=== PATIENT | male | born 1940 | race Caucasian/White ===

== ENCOUNTER 2021-06-26 17:09 | Observation (INO) | payer OTHER ==
[~2021-06-26] VITALS: Ht 177.8 cm; Wt 80.9 kg
[2021-06-26] MEDS ORDERED: ASPIRIN81 MG PO (17:21)
[2021-06-26] MEDS ORDERED: HORIZANT600 MG PO (17:21)
[2021-06-26] MEDS ORDERED: LISINOPRIL-HCT1 EAC1 PO (17:21)
[2021-06-26] MEDS ORDERED: VITAMIN E1000 UNI4 PO (17:22)
[2021-06-26] MEDS ORDERED: VIAGRA25 MG PO (17:22)
[2021-06-26] MEDS ORDERED: METOPROLOL SUCC25 MG PO (17:22)
[2021-06-26] MEDS ORDERED: CRESTOR5 MG PO (17:22)
[2021-06-26] MEDS ORDERED: PREDNISONE20 MG PO ×2 (17:22→22:10)
[2021-06-26] MEDS ORDERED: OMEPRAZOLE5 GM MISC (17:22)
--- OUTSIDE RECORDS SUMMARY | 2021-06-26 18:36 | XMS ---
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 Gamaliel has no Care Guidelines for this patient. [place] VISIT COUNT (12 MO.) 1 KEVON Chen TOTAL 1 NOTE: Visits indicate total known visits. ED/UCC VISIT TRACKING (12 MO.) 06/26/2021 17:11 KEV[place] TYPE: Emergency COMPLAINT: - VOMITING, DIZZY, HOT INPATIENT VISIT TRACKING (12 MO.) No inpatient visits to display in this time frame [email or web address]
--- NOTE | 2021-06-26 20:38 | EKG ---
[facility] [address] [place], [place] [address] Signed Sinus bradycardia with 1st degree AV block Nonspecific ST abnormality Abnormal ECG No previous ECGs available Confirmed by BARRERA CONWAY MD ([id number] on 06/26/2021 8:38:34 PM Electronically Signed By: BARRERA CONWAY MD 06/26/212037 PATIENT NAME: HAN BONE JUAN Electrocardiogram DATE OF : 42 PHYSICIAN: BARRERA CONWAY MD REPORT #: [id number] REPORT IS CONFIDENTIAL AND NOT TO BE RELEASED WITHOUT AUTHORIZATION
--- NOTE | 2021-06-26 22:10 | NUR ---
PT ADMITTED TO ROOM 112 @ 2203, ACCOMPAINED BY HIS Kameron. HE IS [place], BUT WEARS HEARING AIDES REDD. STATES HE WAS NOT DIZZY WHEN HE SELF TRANSFERED FROM THE STRETCHER TO THE BED. SADIE MASTERSON. CONTINUE TO DO ADMISSION.
--- NOTE | 2021-06-26 22:15 | NUR ---
PT TO ROOM 112 VIA STRETCHER FROM ED. ALERT AND ORIENTED. ABLE TO TRANSFER SELF TO BED. DENIES DIZZINESS OR LIGHTHEADEDNESS WITH TRANSFER. GAIT STEADY. VS WNL. TELE #[address] HR 50'S. IN ROOM. SANDWICH BOX ORDERED. SENIOR PLANNING ANALYST IN ROOM TO DO ADMISSION.
--- NOTE | 2021-06-26 23:24 | NUR ---
ADMISSION ASSESSMENT COMPLETE. NEURO CHECK WNL. PT DENIES PAIN OR NAUSEA. TELE #3. HR 60'S. DENIES CHEST PAIN OR SOB. 100% OF SANDWICH BOX ATE. PT ORIENTED TO ROOM AND NURSE CALL LIGHT. DENIES QUESTIONS OR CONCERNS AT THIS TIME. CALL LIGHT IN REACH.
--- NOTE | 2021-06-27 02:15 | NUR ---
NEURO CHECK WNL. PT DENIES DIZZINESS, NAUSEA, OR PAIN. VS WNL. TELE #3. PACED. HR 60'S. NO NEEDS AT THIS TIME. CALL LIGHT IN REACH.
--- NOTE | 2021-06-27 04:20 | NUR ---
PT RESTING IN BED WITH EYES CLOSED, NO APPARENT DISTRESS. RESPIRATIONS EVEN. TELE #3, HR 50'S.
--- NOTE | 2021-06-27 06:32 | NUR ---
SCHEDULED MEDS ADMINISTERED. NEURO CHECK WNL. PT DENIES PAIN OR NAUSEA. BREAKFAST ORDERED. NO FURTHER NEEDS AT THIS TIME. CALL LIGHT IN REACH.
--- NOTE | 2021-06-27 07:18 | NUR ---
Shift report recieved from RN Debbie, pt resting safely in bed w/ call light in reach and eyes closed, RR even and unlabored.
--- NOTE | 2021-06-27 07:40 | NUR ---
PT WAS IN BED. PT WAS GIVEN A WARM WASHCLOTH FOR THEIR FACE. WHITEBOARD WAS UPDATED. PT REFUSED TO GET UP IN THE RECLINER. CALL LIGHT IS WITHIN REACH. NO FURTHER NEEDS AT THIS TIME.
[2021-06-27] MEDS ORDERED: OMEPRAZOLE20 MG PO (09:16)
[2021-06-27] MEDS ORDERED: ROSUVASTATIN CA40 MG PO (09:16)
[2021-06-27] MEDS ORDERED: PREDNISONE1 MG PO (09:16)
--- NOTE | 2021-06-27 09:29 | NUR ---
PT SITTING UP IN BED EATING BREAKFAST. AT BEDSIDE. PT DENIES ANY NAUSEA OR DIZZINESS. MORNING ASSESMENT COMPLETED AND SCHEDULED MEDS GIVEN PER PROVIDER ORDER. PT EAGER TO DISCHARGE. LISETH COLLINS IN ROOM DSICUSSING DISCHARGE PLANNING W/ PT AND . PT DENIES ANY OTHER NEEDS AT THIS TIME, CALL LIGHT IN REACH.
[2021-06-27] MEDS ORDERED: CLOPIDOGREL75 MG PO (09:48)
[2021-06-27] MEDS ORDERED: GABAPENTIN600 MG PO (10:17)
[2021-06-27] MEDS ORDERED: ZOFRAN4 MG PO (10:17)
--- NOTE | 2021-06-27 10:19 | NUR ---
MED REC COMPLETE
--- NOTE | 2021-06-27 12:09 | NUR ---
It was my pleasure to visit with Mr Cobb this morning. I found Mr. Cobb to be awake, alert, and oriented to person, place and time. There was no distress noted during our visit, and Mr. Cobb was able to answer questions appropriately. Additionally, Mrs. Cobb was present in the room, and was involved in our discussion. Mr. Cobb states that he has had "good care" while here in the [facility], he expressed appreciation for the "good food", and when asked, he did verbalize that the nurses were explaining his medications to him. We talked about his medications, and the importance of knowing the possible side effects. I also explained to him that the pharmicist would visit him prior to discharge and discuss the medications that he would be taking on discharge, and the side effects. I also encouraged both him and his to ask questions if they were not understanding the medications or possible side effects. Both agreed. Mr. Cobb also reported that he was "happy" with the care he received, and stated "can I stay longer". It was a pleasure to visit with MrDorothy & Mrs. Cobb today, upon leaving they both denied any questions or concerns regarding his care while here at the hospital.
== END 2021-06-27 10:50 | disposition home or self-care (01) ==
LOC: ED 17:09 → MS 17:12
PROVIDERS: ADMIT Internal Medicine; ATTEND Internal Medicine
DX: R42 Dizziness and giddiness (principal); I25.10 Atherosclerotic heart disease of native coronary artery without angina pectoris; I42.9 Cardiomyopathy, unspecified; R00.1 Bradycardia, unspecified; Z20.822 Contact with and (suspected) exposure to COVID-19; I65.23 Occlusion and stenosis of bilateral carotid arteries; E78.5 Hyperlipidemia, unspecified; I10 Essential (primary) hypertension; Z87.891 Personal history of nicotine dependence; Z95.810 Presence of automatic (implantable) cardiac defibrillator; Z95.1 Presence of aortocoronary bypass graft
CPT/HCPCS: 70450; 70496; 70498; 71045; 80048; 80053; 83735; 84484; 85025; 85610; 85730; 93005; 93010; 99285-25; C9803; G0378; J2405; U0003